=== PATIENT | female | born 1985 | race Caucasian/White ===

== ENCOUNTER 2016-06-15 21:23 | Emergency (ER) | payer MEDICAID ==
--- NOTE | ~2016-06-15 | ER ---
PATIENT'S NAME: [facility] AGE: 30 Y [address] ROOM: [place] [id number] LOCATION: [facility] ADMIT DATE: 06/15/2016 ER/Outpatient Report DISCHARGE DATE: 06/15/2016 FAMILY PHYSICIAN: Vivien Marin ATTENDING PHYSICIAN: Ramon Godfrey Time of Arrival: 2125 hours. Time of Evaluation: 2125 hours. CHIEF COMPLAINT: Vomiting. HISTORY OF PRESENT ILLNESS: The patient states on Saturday night, she began having some generalized abdominal pain and then morning, she started vomiting. She states she has been vomiting pretty continuously for the past 2 days. Did have diarrheal stool x1 this morning. She has had fever. No chills. Denies any blood in the vomitus or the diarrhea. Pain is localized just around the umbilical area at this time. Denies having any urinary frequency or pain with urination. She states she has been taking a clear liquid diet, but the fluids did not stay down well. ALLERGIES: LORTAB. MEDICATIONS: Singulair. PAST MEDICAL HISTORY: Asthma and incomplete right bundle-branch block. PAST SURGERIES: Negative. Last menstrual period was from 06/07/2016 to 06/10/2016. SOCIAL HISTORY: Denies use of drugs or alcohol. She states she quit smoking 10 days ago. REVIEW OF SYSTEMS: Negative other than those mentioned in the HPI. PHYSICAL EXAMINATION: VITAL SIGNS: She weighed 68.9 kg, blood pressure is 106/74, pulse of 86, respirations 16, temperature of 97.7, O2 saturation is 97% on room air. GENERAL: She is awake, alert, and oriented x4. SKIN: [place], warm, and dry. PATIENT'S NAME: [facility] AGE: 30 Y [address] ROOM: [place], [place] [id number] LOCATION: [facility] ADMIT DATE: 06/15/2016 ER/Outpatient Report DISCHARGE DATE: 06/15/2016 FAMILY PHYSICIAN: Vivien Marin ATTENDING PHYSICIAN: Ramon Godfrey RESPIRATIONS: Even and nonlabored. LUNGS: Lung sounds are clear throughout. HEART: Regular rate and rhythm. ABDOMEN: Soft and nondistended. Bowel sounds are present. She is tender to palpate around the umbilicus and in the right lower quadrant area. EMERGENCY DEPARTMENT COURSE: Saline lock was initiated. Fluids of normal saline were started at a wide- open rate. She was given Zofran 4 mg IV. LABORATORY DATA AND X-RAYS: Lab work was drawn. CBC was within normal limits. Chem panel is within normal limits. Clean-catch UA is positive for leukocytes, ketones. She does have 5-10 epithelial cells, but moderate bacteria. Urine test is negative. CT scan shows moderate stool. Normal appendix. Nonspecific terminal ileal mucosa seen with inflammatory bowel disease. The patient states the fluids and the Zofran did make her feel better until after the CAT scan. We did repeat the Zofran. IMPRESSION: Urinary tract infection and gastroenteritis. PLAN: Home, rest, fluids. Avoid milk products for at least a week. A prescription was written for Bactrim DS. She is to follow up with her primary provider within the next 2-3 days if symptoms persist. She verbalized understanding. LAM CARMEN APRN FOR MD CAR[facility] ANN ALANIZ/barbi /[id number] d: 06/16/16 0245 t: 06/27/16 0826, OUTPATIENT REPORT
[2016-06-15 21:54] LABS: BASOPHIL % 0.5 %; EOSINOPHIL # 0.1 K/uL (0.0-0.5); EOSINOPHIL % 1.6 %; HEMATOCRIT 38.4 % (33.0-46.0); HEMOGLOBIN 12.7 g/dL (11.0-15.0); IMMATURE GRANULOCYTE % 0.2 %; LYMPHOCYTE # 1.2 K/uL (0.8-4.0); LYMPHOCYTE % 27.9 %; MCH 29.7 pg (27.0-34.0); MCHC 33.1 gm/dL (32.0-36.5); MCV 89.9 fl (83.0-98.0); MONOCYTE # 0.7 K/uL (0.0-1.0); MONOCYTE % 15.3 %; MPV 9.8 fl (9.4-12.4); NEUTROPHIL # (ANC) 2.3 K/uL (1.8-7.8); NEUTROPHIL % 54.5 %; NRBC % 0 /100WBC (0-0.00); PLATELET COUNT 212 K/uL (150-450); RBC 4.27 M/uL (3.50-5.00); RDW-CV 11.9 % (11.9-14.6); WBC 4.3 K/uL (4.0-11.0)
[2016-06-15 21:58] LABS: BILIRUBIN URINE NEGATIVE (NEGATIVE); BLOOD URINE NEGATIVE /UL (NEGATIVE); COLOR URINE YELLOW (YELLOW); GLUCOSE URINE NEGATIVE (NEGATIVE); KETONE URINE 5 mg/dL (NEGATIVE); LEUKOCYTES URINE 25 /UL (NEGATIVE); NITRITE URINE NEGATIVE (NEGATIVE); PROTEIN URINE 15 mg/dL (NEGATIVE); SPEC GRAVITY URINE 1.025 (1.003-1.035); TURBIDITY URINE CLEAR (CLEAR); UROBILINOGEN URINE 4 mg/dL (NORMAL)
[2016-06-15 22:12] LABS: ALBUMIN 3.8 gm/dL (3.5-5.0); ALK PHOS 58 IU/L (33-138); ALT 17 IU/L (12-78); ANION GAP 12.5 (10.0-19.0); AST 15 IU/L (10-40); BLOOD UREA NITROGEN 18 mg/dL (6-24); CALCIUM 8.3 mg/dL (8.5-10.5); CHLORIDE 109 mMol/L (96-110); CO2 24 mMol/L (22-32); CREATININE 0.7 mg/dL (0.5-1.1); ESTIMATED GFR (MDRD EQUATION) > 60; POTASSIUM 3.5 mMol/L (3.7-5.1); SODIUM 142 mMol/L (135-145); TOTAL BILIRUBIN 0.5 mg/dL (0.0-1.5); TOTAL PROTEIN 7.1 g/dL (6.0-8.4)
[2016-06-15 22:13] LABS: BACTERIA URINE MODERATE (NEGATIVE); MUCUS URINE 4+ (NEGATIVE); RBC URINE 0-2 #/HPF (NEGATIVE)
== END 2016-06-15 23:15 | disposition disaster alternative care site (69) ==
LOC: GMED 21:23
PROVIDERS: Emergency Medicine
DX: N39.0 Urinary tract infection, site not specified (principal); K52.9 Noninfective gastroenteritis and colitis, unspecified; I45.10 Unspecified right bundle-branch block; Z87.891 Personal history of nicotine dependence; Z88.5 Allergy status to narcotic agent
CPT/HCPCS: J2405; J7030; Q9967